=== PATIENT | male | born 1990 | race Caucasian/White ===

== ENCOUNTER 2023-12-15 17:28 | Emergency (ER) | payer SELFPAY ==
[~2023-12-15] VITALS: Ht 172.7 cm; Wt 70.0 kg
[2023-12-15 17:31] VITALS: O2SAT 100
[2023-12-15] MEDS ORDERED: IBUPROFEN 600MG TABLET PO ONE (18:45)
[2023-12-15] MEDS: IBUPROFEN 600MG TABLET PO NR (20:00)
[2023-12-15] MEDS ORDERED: IBUP-2029 MT (20:49)
[2023-12-15 21:03] VITALS: BP 116/75; PULSE 80; RESP 19; TEMP 36.61404; O2SAT 100
== END 2023-12-15 21:04 | disposition home or self-care (01) ==
LOC: ER 17:28
DX: M25.512 Pain in left shoulder (principal); V49.49XA Driver injured in collision with other motor vehicles in traffic accident, initial encounter; Y93.89 Activity, other specified; Y92.89 Other specified places as the place of occurrence of the external cause; Y99.8 Other external cause status
CPT/HCPCS: 73030; 99283